=== PATIENT | male | born 1975 | race Caucasian/White ===

== ENCOUNTER 2019-09-22 06:42 | Emergency (ER) | payer OTHER ==
[~2019-09-22] VITALS: Ht 177.8 cm; Wt 83.9 kg
[~2019-09-22 06:42] MED LIST: AMPICILLIN TRI500 MG PO; PROVENTIL0.5 ML/2.5 IH
== END 2019-09-22 09:21 | disposition home or self-care (01) ==
LOC: ER 06:42
DX: S01.521A Laceration with foreign body of lip, initial encounter (principal); W45.8XXA Other foreign body or object entering through skin, initial encounter; Y93.89 Activity, other specified; Y92.89 Other specified places as the place of occurrence of the external cause; Y99.8 Other external cause status